=== PATIENT | male | born 1995 | race American Indian/Alaskan Native ===

== ENCOUNTER 2018-12-17 09:10 | Emergency (ER) | payer OTHER ==
[2018-12-17 09:20] VITALS: BP 141/91
[2018-12-17] MEDS ORDERED: TORADOL IM ONE (10:47)
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
== END 2018-12-17 11:53 | disposition home or self-care (01) ==
LOC: ED 09:10
DX: M54.2 Cervicalgia (principal); M54.5 Low back pain; M79.662 Pain in left lower leg; M79.10 Myalgia, unspecified site; F17.200 Nicotine dependence, unspecified, uncomplicated; Z79.1 Long term (current) use of non-steroidal anti-inflammatories (NSAID); V89.2XXA Person injured in unspecified motor-vehicle accident, traffic, initial encounter; Y93.89 Activity, other specified; Y92.488 Other paved roadways as the place of occurrence of the external cause; Y99.8 Other external cause status
CPT/HCPCS: 96372; 99282; J1885